=== PATIENT | male | born 1955 | race African-American/Black ===

== ENCOUNTER 2021-01-03 15:53 | Inpatient (IN) | payer OTHER ==
[2021-01-03 20:53] VITALS: BMI 19.5
[2021-01-03] MEDS ORDERED: MENTHOL/PHENOL 1 EACH UD MM PRN (21:42)
[2021-01-03] MEDS ORDERED: MAG HYDROX/AL HYDROX/SIMETH 30 ML UNIT-DOSE CUP PO PRN (21:42)
[2021-01-03] MEDS ORDERED: MAGNESIUM CITRATE 300 ML BOTTLE PO PRN (21:42)
[2021-01-03] MEDS ORDERED: hydrOXYzine PAMOATE 25 MG CAPSULE (FP) PO PRN (21:42)
[2021-01-03] MEDS ORDERED: BISMUTH SUBSALICYLATE 524 MG/30 ML PO PRN (21:42)
[2021-01-03] MEDS ORDERED: ONDANSETRON *ODT* 4 MG TABLET SL PRN (21:42)
[2021-01-03] MEDS ORDERED: IBUPROFEN 400 MG TABLET (FP) PO PRN (21:42)
[2021-01-03] MEDS ORDERED: ACETAMINOPHEN 325 MG TABLET (FP) PO PRN ×2 (21:42)
[2021-01-03] MEDS ORDERED: diazePAM 5 MG TABLET PO PRN (21:44)
[2021-01-03] MEDS ORDERED: cloNIDine HCL 0.1 MG TABLET PO PRN (21:44)
[2021-01-03] MEDS ORDERED: BUPRENORPHINE/NALOXONE 2 MG/0.5 MG FILM PACKET SL ONE (22:30)
[2021-01-04] MEDS ORDERED: BUPRENORPHINE/NALOXONE 2 MG/0.5 MG FILM (DETOX) SL PRN (00:01)
[2021-01-04] MEDS: diazePAM 5 MG TABLET PO SCH ×5 (00:31→22:39)
[2021-01-04] MEDS: THIAMINE HCL 100 MG TABLET (FP) PO SCH ×2 (00:32→22:38)
[2021-01-04] MEDS: MELATONIN 5 MG TABLETS PO SCH ×2 (00:35→22:40)
[2021-01-04] MEDS ORDERED: BUPRENORPHINE/NALOXONE 4 MG/1 MG FILM PACKET SL ONE (10:00)
[2021-01-04] MEDS: PRENATAL VITAMINS W/ FOLIC ACID TABLET (FP) PO SCH (10:14)
[2021-01-04] MEDS: MAGNESIUM HYDROX 2400MG/30ML ORAL SUSPENSION 30 ML CUP PO PRN (10:14)
[2021-01-04 11:25] LABS: HEMOGLOBIN 14.3 GM/dL (11.7-16.9); MCH 30.6 pg (25.7-33.7); MCHC 32.5 g/dl (32.0-35.9); MEAN CELL VOLUME 94.2 fl (80-96); MEAN PLT VOLUME 9.6 fl (7.5-11.1); PLATELET COUNT 183 K/MM3 (134-434); RBC 4.67 M/mm3 (4.00-5.60); RDW 15.6 % (11.9-15.9); WHITE BLOOD COUNT 6.3 K/mm3 (4.0-10.0)
[2021-01-04 11:28] LABS: ALBUMIN 3.2 g/dl (3.4-5.0); BLOOD UREA NITROGEN 13.2 mg/dL (7-18)
[2021-01-04 11:30] LABS: CREATININE 0.9 mg/dL (0.55-1.3)
[2021-01-04 11:32] LABS: TOT PROT 6.8 g/dl (6.4-8.2)
[2021-01-04 11:37] LABS: BILIRUBIN,TOTAL 0.4 mg/dL (0.2-1)
[2021-01-04] MEDS: NICOTINE POLACRILEX 2 MG GUM BUC PRN (12:05)
[2021-01-04] MEDS ORDERED: diazePAM 5 MG TABLET PO PRN (13:58)
[2021-01-05] MEDS ORDERED: diazePAM 5 MG TABLET PO SCH ×2 (06:00→14:00)
[2021-01-05] MEDS: PRENATAL VITAMINS W/ FOLIC ACID TABLET (FP) PO SCH (09:40)
[2021-01-05] MEDS ORDERED: METHADONE HCL 10 MG TABLET (FOR DETOX USE ONLY) PO ONE (10:00)
[2021-01-05] MEDS: THIAMINE HCL 100 MG TABLET (FP) PO SCH (22:09)
[2021-01-05] MEDS: MELATONIN 5 MG TABLETS PO SCH (22:10)
[2021-01-06] MEDS: diazePAM 5 MG TABLET PO SCH ×2 (05:26→18:20)
[2021-01-06] MEDS: NICOTINE POLACRILEX 2 MG GUM BUC PRN (05:27)
[2021-01-06] MEDS ORDERED: diazePAM 5 MG TABLET PO SCH (06:00)
[2021-01-06] MEDS ORDERED: METHADONE (DETOX) 10 MG, METHADONE (DETOX) 5 MG PO ONE (10:00)
[2021-01-06] MEDS: PRENATAL VITAMINS W/ FOLIC ACID TABLET (FP) PO SCH (10:07)
[2021-01-06 16:07] LABS: SARS-CoV-2 NAA Not Detected (Not Detected)
[2021-01-06] MEDS: MELATONIN 5 MG TABLETS PO SCH (23:45)
[2021-01-07] MEDS: THIAMINE HCL 100 MG TABLET (FP) PO SCH ×2 (00:01→22:15)
[2021-01-07] MEDS ORDERED: diazePAM 5 MG TABLET PO ONE ×2 (05:00→06:00)
[2021-01-07] MEDS ORDERED: METHADONE HCL 10 MG TABLET (FOR DETOX USE ONLY) PO ONE (10:00)
[2021-01-07] MEDS: PRENATAL VITAMINS W/ FOLIC ACID TABLET (FP) PO SCH (10:52)
[2021-01-07] MEDS: MAGNESIUM HYDROX 2400MG/30ML ORAL SUSPENSION 30 ML CUP PO PRN (18:05)
[2021-01-07] MEDS: MELATONIN 5 MG TABLETS PO SCH (22:15)
[2021-01-08] MEDS ORDERED: METHADONE HCL 5 MG TABLET (FOR DETOX USE ONLY) PO ONE (05:00)
[2021-01-08] MEDS ORDERED: diazePAM 5 MG TABLET PO ONE (05:00)
[2021-01-08 09:20] VITALS: BP 119/74; PULSE 89; TEMP 97.3
[2021-01-08] MEDS: PRENATAL VITAMINS W/ FOLIC ACID TABLET (FP) PO SCH (11:21)
== END 2021-01-08 11:57 | disposition other institution (70) | DRG 897 ==
LOC: YASAS 15:53 → Y6N 21:57
PROVIDERS: ADMIT Allergy & Immunology; ATTEND Allergy & Immunology
PROC: HZ2ZZZZ Detoxification Services for Substance Abuse Treatment (ICD-10-PCS; principal; 2021-01-03)
DX: F11.23 Opioid dependence with withdrawal (principal); F14.20 Cocaine dependence, uncomplicated; F10.230 Alcohol dependence with withdrawal, uncomplicated; F17.210 Nicotine dependence, cigarettes, uncomplicated; R29.898 Other symptoms and signs involving the musculoskeletal system; Z99.89 Dependence on other enabling machines and devices; Z98.890 Other specified postprocedural states
CPT/HCPCS: 36415; 80053; 82962; 85027; 86780; C9803; J0735; U0003; U0005

== ENCOUNTER 2021-01-08 11:59 | Inpatient (IN) | payer OTHER ==
[2021-01-08] MEDS ORDERED: LOPERAMIDE HCL 2 MG CAPSULE PO PRN (12:40)
[2021-01-08] MEDS ORDERED: IBUPROFEN 400 MG TABLET (FP) PO PRN (12:40)
[2021-01-08] MEDS ORDERED: MENTHOL/PHENOL 1 EACH UD MM PRN (12:40)
[2021-01-08] MEDS ORDERED: hydrOXYzine PAMOATE 25 MG CAPSULE (FP) PO PRN (12:40)
[2021-01-08] MEDS ORDERED: P-EPHED 60MG/TRIPROLIDI 2.5MG TABLET PO PRN (12:40)
[2021-01-08] MEDS ORDERED: NICOTINE POLACRILEX 2 MG GUM BUC PRN (12:40)
[2021-01-08] MEDS ORDERED: MAG HYDROX/AL HYDROX/SIMETH 30 ML UNIT-DOSE CUP PO PRN (12:40)
[2021-01-08] MEDS ORDERED: ACETAMINOPHEN 325 MG TABLET (FP) PO PRN (12:40)
[2021-01-08] MEDS ORDERED: guaiFENesin 200 MG/10 ML 10 ML UNIT-DOSE CUPS PO PRN (12:40)
[2021-01-08] MEDS ORDERED: MAGNESIUM CITRATE 300 ML BOTTLE PO PRN (12:40)
[2021-01-08] MEDS ORDERED: MAGNESIUM HYDROX 2400MG/30ML ORAL SUSPENSION 30 ML CUP PO PRN (12:40)
[2021-01-08] MEDS: MELATONIN 5 MG TABLETS PO SCH (21:28)
[2021-01-08] MEDS: THIAMINE HCL 100 MG TABLET (FP) PO SCH (21:28)
[2021-01-09] MEDS: NICOTINE 7 MG/24 HOURS TOPICAL PATCH TD SCH (10:50)
[2021-01-09] MEDS: PRENATAL VITAMINS W/ FOLIC ACID TABLET (FP) PO SCH (10:50)
[2021-01-09] MEDS: MELATONIN 5 MG TABLETS PO SCH (21:13)
[2021-01-09] MEDS: THIAMINE HCL 100 MG TABLET (FP) PO SCH (21:13)
[2021-01-10] MEDS: PRENATAL VITAMINS W/ FOLIC ACID TABLET (FP) PO SCH (09:44)
[2021-01-10] MEDS: NICOTINE 7 MG/24 HOURS TOPICAL PATCH TD SCH (09:46)
[2021-01-10] MEDS: BUPRENORPHINE/NALOXONE 4 MG/1 MG FILM PACKET SL SCH ×2 (12:25→17:31)
[2021-01-10] MEDS ORDERED: MASKS NR ONE (15:36)
[2021-01-10 15:47] LABS: PH,URINE >= 9.0 (5.0-8.0); URINE APPEARANCE TURBID; URINE BILIRUBIN NEGATIVE (NEGATIVE); URINE COLOR YELLOW; URINE GLUCOSE (UA) NEGATIVE (NEGATIVE); URINE KETONE NEGATIVE (NEGATIVE); URINE LEUK ESTERASE NEGATIVE (NEGATIVE); URINE NITRITE NEGATIVE (NEGATIVE); URINE PROTEIN NEGATIVE (NEGATIVE)
[2021-01-10] MEDS: THIAMINE HCL 100 MG TABLET (FP) PO SCH (21:15)
[2021-01-10] MEDS: MELATONIN 5 MG TABLETS PO SCH (21:35)
[2021-01-11] MEDS: BUPRENORPHINE/NALOXONE 4 MG/1 MG FILM PACKET SL SCH ×2 (10:33→18:02)
[2021-01-11] MEDS: PRENATAL VITAMINS W/ FOLIC ACID TABLET (FP) PO SCH (10:33)
[2021-01-11] MEDS: NICOTINE 7 MG/24 HOURS TOPICAL PATCH TD SCH (10:33)
[2021-01-11] MEDS: MELATONIN 5 MG TABLETS PO SCH (21:11)
[2021-01-11] MEDS: THIAMINE HCL 100 MG TABLET (FP) PO SCH (21:11)
[2021-01-12 06:34] VITALS: BP 109/65; PULSE 70; TEMP 97.7
[2021-01-12] MEDS: PRENATAL VITAMINS W/ FOLIC ACID TABLET (FP) PO SCH (09:18)
[2021-01-12] MEDS: NICOTINE 7 MG/24 HOURS TOPICAL PATCH TD SCH (09:20)
[2021-01-12] MEDS: BUPRENORPHINE/NALOXONE 4 MG/1 MG FILM PACKET SL SCH (09:22)
== END 2021-01-12 09:30 | disposition home or self-care (01) | DRG 895 ==
LOC: YASAS 11:59 → Y3W 12:01
PROVIDERS: ADMIT Allergy & Immunology; ATTEND Allergy & Immunology
PROC: HZ42ZZZ Group Counseling for Substance Abuse Treatment, Cognitive-Behavioral (ICD-10-PCS; principal; 2021-01-08)
DX: F11.20 Opioid dependence, uncomplicated (principal); F14.20 Cocaine dependence, uncomplicated; F10.20 Alcohol dependence, uncomplicated
CPT/HCPCS: 81003; 82962